=== PATIENT | male | born 1960 | race Caucasian/White ===

== ENCOUNTER 2019-12-01 06:36 | Observation (INO) ==
[~2019-12-01 06:36] MED LIST: Lactated Ringers 1000 ml BAG 1,000 ML IV SCH
[2019-12-01] MEDS ORDERED: ceFAZolin 2 GM PREMIX in ORs 2 GM/50 ML BAG ONE (07:42)
[2019-12-01] MEDS ORDERED: fentaNYL 100 mcg/2 ml 50 MCG/ML VIAL ONE ×3 (07:43→12:46)
[2019-12-01] MEDS ORDERED: Midazolam 2 mg/2 ml VIAL 1 mg/ml 2 ml VIAL (2 mg) ONE (07:43)
[2019-12-01] MEDS ORDERED: Propofol 10 MG/ML 20 ML BTL ONE (07:44)
[2019-12-01] MEDS ORDERED: Glycopyrrolate IV 0.2 MG/ML 1 ML VIAL ONE (07:44)
[2019-12-01] MEDS ORDERED: Succinylcholine 200 mg VIAL 20 mg/ml 10 ml VIAL (200 mg) ONE (07:45)
[2019-12-01] MEDS ORDERED: Rocuronium 50 mg VIAL 10 mg/ml 5 ml VIAL (50 mg) ONE ×2 (07:48→10:50)
[2019-12-01] MEDS ORDERED: Phenylephrine 40 mcg/mL 10mL (400mcg) SYRINGE ONE ×2 (07:53→10:08)
[2019-12-01] MEDS ORDERED: Bupivacaine 0.5% SDV PF 30ML VIAL ONE (08:10)
[2019-12-01] MEDS ORDERED: EPHEDrine (Pressors) 50 MG/ML VIAL ONE (10:11)
[2019-12-01] MEDS ORDERED: Phenylephrine IV 10 MG/ML 1 ml VIAL ONE (10:14)
[2019-12-01] MEDS ORDERED: Ondansetron 4 mg VIAL 2 MG/ML 2 ml VIAL ONE (11:19)
[2019-12-01] MEDS ORDERED: Dexamethasone IV 4 MG/ML VIAL 1 ml VIAL ONE (11:19)
[2019-12-01] MEDS ORDERED: diPHENhydraMINE IV 50 MG/ML 1 ml VIAL (BENADRYL) IV PRN (12:14)
[2019-12-01] MEDS ORDERED: Lactulose 30 ml UDC PO PRN (12:14)
[2019-12-01] MEDS ORDERED: Ondansetron ODT 4 mg TAB 4 MG TAB PO PRN (12:14)
[2019-12-01] MEDS ORDERED: oxyCODONE/Acetamin 5/325 mg TAB PO PRN (12:14)
[2019-12-01] MEDS ORDERED: Ondansetron 4 mg VIAL 2 MG/ML 2 ml VIAL IV PRN ×2 (12:14→12:22)
[2019-12-01] MEDS ORDERED: diPHENhydraMINE 25 mg TAB PO PRN (12:14)
[2019-12-01] MEDS ORDERED: Magnesium Hydroxide LIQ 30 ML UDC PO PRN (12:14)
[2019-12-01] MEDS ORDERED: fentaNYL 100 mcg/2 ml 50 MCG/ML VIAL IV PRN (12:22)
[2019-12-01] MEDS ORDERED: Naloxone 0.4 mg VIAL 0.4 mg/ml 1 ml VIAL IV PRN (12:22)
[2019-12-01] MEDS: Lactated Ringers 1000 ml BAG 1,000 ML IV SCH (14:00)
[2019-12-01] MEDS ORDERED: Lactated Ringers 1000 ml BAG 1,000 ML IV SCH (16:00)
[2019-12-01] MEDS: ceFAZolin 1 GM in Dextrose (*) 1 GM/50 ML BAG IVPB SCH (18:19)
[2019-12-01] MEDS: Magnesium Hydroxide LIQ 30 ML UDC PO SCH (21:20)
[2019-12-02] MEDS: Lactated Ringers 1000 ml BAG 1,000 ML IV SCH (01:29)
[2019-12-02] MEDS: ceFAZolin 1 GM in Dextrose (*) 1 GM/50 ML BAG IVPB SCH ×2 (01:29→09:53)
[2019-12-02 06:27] LABS: Hematocrit 31 % (42-52); Hemoglobin 10.7 g/dL (14.0-18.0); Mean Platelet Volume 8.5 fL (7.4-10.4); Platelet Count 104 10^3/uL (150-450)
[2019-12-02 06:47] LABS: BUN/Creatinine Ratio 23.7 (8-20); Calcium 8.3 mg/dL (8.6-10.3); EGFR African American 79.8 (>60); Potassium 3.8 mmol/L (3.5-5.0)
[2019-12-02 08:11] VITALS: BP 100/52
[2019-12-02] MEDS: Magnesium Hydroxide LIQ 30 ML UDC PO SCH (08:16)
[2019-12-02] MEDS ORDERED: Vitamin THERAPEUTIC TAB PO SCH (09:00)
== END 2019-12-02 16:00 | disposition home or self-care (01) ==
LOC: OR 06:36 → SSU 06:36
PROVIDERS: ADMIT Orthopaedic Surgery Adult Reconstructive Orthopaedic Surgery; ATTEND Orthopaedic Surgery Adult Reconstructive Orthopaedic Surgery